=== PATIENT | male | born 1965 | race Caucasian/White ===

== ENCOUNTER 2020-01-03 01:04 | Inpatient (IN) | payer BC ==
[2020-01-03 01:57] LABS: Basophils # (A) 0.1 k/uL (0-0.2); Basophils % (A) 1 %; Eosinophils # (A) 0.5 k/uL (0-0.7); Eosinophils % (A) 3 %; HCT 42.2 % (39.0-53.0); HGB 14.2 gm/dL (13.0-17.5); Lymphocytes # (A) 1.1 k/uL (1.0-4.8); Lymphocytes % (A) 7 %; MCH 30.3 pg (25.0-35.0); MCHC 33.6 g/dL (31.0-37.0); Mean Platelet Volume 7.9; Monocytes # (A) 0.7 k/uL (0-1.0); Monocytes % (A) 5 %; Neutrophils % (A) 81 %; Platelet Count 213 k/uL (150-450); RBC 4.69 m/uL (4.30-5.90); RDW 11.9 % (11.5-15.5); WBC 14.8 k/uL (3.8-10.6)
[2020-01-03] MEDS ORDERED: RX INFO: IV CONTRAST WAS GIVEN 1 EACH MISC MISCELLANE PRN (01:58)
[2020-01-03] MEDS ORDERED: IBUPROFEN 600 MG TAB PO STA (01:59)
[2020-01-03] MEDS ORDERED: SODIUM CHLORIDE 0.9% 1,000 ML IV ONE ×2 (01:59→03:00)
[2020-01-03 02:07] LABS: ALT 32 U/L (4-49); AST 40 U/L (17-59); African American GFR (CKD) >90 (>60 ml/min/1.73 sqM); Albumin 3.6 g/dL (3.5-5.0); Alkaline Phosphatase 81 U/L (38-126); Anion Gap 12 mmol/L; Blood Urea Nitrogen 11 mg/dL (9-20); Calcium 8.6 mg/dL (8.4-10.2); Carbon Dioxide 26 mmol/L (22-30); Chloride 90 mmol/L (98-107); Glucose 133 mg/dL (74-99); LDH 466 U/L (313-618); Magnesium 2.1 mg/dL (1.6-2.3); Non-African American GFR(CKD) 87 (>60 ml/min/1.73 sqM); Potassium 4.1 mmol/L (3.5-5.1); Sodium 128 mmol/L (137-145); Total Bilirubin 0.7 mg/dL (0.2-1.3); Total Protein 6.8 g/dL (6.3-8.2)
[2020-01-03] MEDS ORDERED: DILTIAZEM DRIP BOLUS FROM BAG 1 MG SOLN IV ONE ×2 (02:12→03:21)
[2020-01-03] MEDS ORDERED: DILTIAZEM 125 MG in SODIUM CHLORIDE 0.9% 100 ML IV SCH (02:15)
--- NOTE | 2020-01-03 02:18 | XR ---
EXAMINATION TYPE: XR chest 1V DATE OF EXAM: 01/03/2020 COMPARISON: NONE HISTORY: Left lung pain TECHNIQUE: Single view FINDINGS: There is 11 cm area of consolidation over the left midlung field. This is probably mostly i n the left lower lobe.. The right lung is clear. There is no heart failure. There is no pleural effus ion. There are chest leads. IMPRESSION: Left side pulmonary consolidation. No heart failure seen.
[2020-01-03 02:21] LABS: Partial Thromboplastin Time 30.5 sec (22.0-30.0); Prothrombin Time 10.7 sec (9.0-12.0)
[2020-01-03] MEDS ORDERED: cefTRIAXone IN SWFI 1,000 MG/10 ML SYRINGE IVP STA (03:02)
[2020-01-03] MEDS ORDERED: AZITHROMYCIN 500 MG in SODIUM CHLORIDE 0.9% 250 ML IVPB STA (03:02)
[2020-01-03] MEDS: SODIUM CHLORIDE 0.9% 1,000 ML IV SCH ×3 (03:14→12:29)
--- NOTE | 2020-01-03 03:46 | CT ---
EXAMINATION TYPE: CT chest angio for PE DATE OF EXAM: 01/03/2020 COMPARISON: None HISTORY: mass vs abscess left lung CT DLP: 376.3 mGycm Automated exposure control for dose reduction was used. CONTRAST: Performed with IV Contrast, patient injected with 100 mL of Isovue 370. There are 3-D post processed images. Heart and mediastinum appear normal. There is no mediastinal adenopathy. Thoracic aorta is intact. Th ere is no aneurysm or dissection. The ascending aorta measures 3.6 cm. There is normal contrast opacification of the pulmonary arteries. There are no filling defects. There is extensive patchy airspace consolidation in the lingula left upper lobe and the superior segm ent left lower lobe. There are multiple air bronchograms. This is consistent with airspace pneumonia. There is 8mm nodule adjacent to the right major fissure without calcification. There is some interst itial infiltrate and atelectasis at the posterior lung bases. There is small left pleural effusion. T he bony thorax is intact. IMPRESSION: No evidence of pulmonary embolism. Extensive airspace infiltrate in the left lung in the lingula left upper lobe and left lower lobe more likely related to bronchopneumonia. No evidence of lung abscess. Small right lower lobe pulmonary nodule adjacent to the major fissure.
--- NOTE | 2020-01-03 04:26 | ED ---
General Adult HPI - General Chief complaint: Chest Pain Stated complaint: Chest Pain, Covid Symptoms Time Seen by Provider: 01/03/20 01:18 Source: patient Mode of arrival: ambulatory Limitations: no limitations - History of Present Illness Initial comments: Hunter is a previously healthy 54-year-old male who doesn't follow with a physician. Patient presents the ER today for fever cough and left-sided chest pain. Patient reports that beginning on Friday he's had fevers and cough, he thought he may have COVID 19 and was trying to treat himself symptomatically however tonight upon laying down he had a sharp pain in his left chest. This prompted him to come to ER for further evaluation. Patient denies any nausea, vomiting, shortness of breath, diarrhea. He's had no anosmia or dysgeusia. No known contacts with anybody who does have COVID 19. - Related Data Allergies Allergy/AdvReac Type Severity Reaction Status Date / Time No Known Allergies Allergy Verified 01/03/20 02:17 Review of Systems ROS Statement: Those systems with pertinent positive or pertinent negative responses have been documented in the HPI. ROS Other: All systems not noted in ROS Statement are negative. Past Medical History Past Medical History: No Reported History History of Any Multi-Drug Resistant Organisms: None Reported Past Surgical History: No Surgical Hx Reported Smoking Status: Smoker, current status unknown Past Alcohol Use History: Daily Past Drug Use History: None Reported General Exam - General Exam Comments Initial Comments: Physical Exam GENERAL: Patient is well-developed and well-nourished. Patient is hot to the touch diaphoretic and if he appears toxic HENT: Normocephalic, Atraumatic. EYES: PERRL, EOMI PULMONARY: Decreased breath sounds on the left CARDIOVASCULAR: Tachycardic Warm and well perfused extremities ABDOMEN: Soft and nontender with normal bowel sounds. SKIN: Skin is hot to the touch and diaphoretic Skin is clear with no lesions or rashes and otherwise unremarkable. : Deferred NEUROLOGIC: Patient is alert and oriented x3. Moving all extremities spontaneously MUSCULOSKELETAL: Normal extremities with adequate strength and full range of motion. No lower extremity swelling or edema. No calf tenderness. PSYCHIATRIC: Normal psychiatric evaluation. Limitations: no limitations Course Vital Signs 01/03/20 01/03/20 01/03/20 01:27 02:10 02:47 Temperature 103.1 F H Pulse Rate 74 156 H 149 H Respiratory 17 18 Rate Blood Pressure 116/72 122/89 O2 Sat by Pulse 97 96 Oximetry 01/03/20 02:54 Temperature 102 F H Pulse Rate Respiratory Rate Blood Pressure O2 Sat by Pulse Oximetry EKG Findings - EKG Comments: EKG Findings:: EKG was obtained as part of the chest pain workup, EKG was obtained at 1:15 AM, rate is 86 rhythm is sinus with frequent PACs, leftward axis, OK 132, QRS 92, QTc is [address] elevations or depressions no evidence of acute ischemia or infarction. PE EKG was obtained due to change in patient's rhythm, repeat EKG obtained at 2:09 AM, rate is 158 rhythm is a narrow complex irregularly irregular tachycardia consistent with an atrial fibrillation with RVR. There is ST depressions laterally likely demand ischemia. No evidence of acute infarction. Procedures - Sepsis Sepsis Focused Exam #1 Time Sepsis Criteria Met: 03:00 Sepsis Focused Exam Date: 01/03/20 Sepsis Focused Exam Time: 04:00 Sepsis Focused Exam Complete: Yes Vital Signs & RN Notes Reviewed: Yes Capillary Refill: < 2 Seconds: Fingers, Toes Peripheral Pulses: Normal: Radial (R), Radial (L) Skin Color: Normal for Patient Respiratory Exam: decreased breath sounds (Left secondary to pneumonia) Cardiovascular Exam: tachycardia, irregular rhythm Medical Decision Making - Medical Decision Making The patient was seen and evaluated, chest pain workup was initiated however it was then noted that the patient is in fact febrile though he is not tachycardic or tachypneic, blood cultures and lactic were added on Patient was treated with antipyretics Initial chest x-ray with a very large left sided consolidation which is concerning for pneumonia versus mass versus abscess Computed tomography scan was ordered pending labs however in the interim patient developed A. fib with RVR, Cardizem was ordered As results of leukocytosis no lactic acidosis 3 AM sepsis identified based on fever, tachycardia, leukocytosis, pneumonia on chest x-ray CT scan resulted with significant pneumonia no obvious pulmonary embolism or mass or abscess Patient's heart rate improving with Cardizem and IV fluids Patient is to be admitted for treatment of sepsis with a consult to cardiology for new onset A. fib RVR - Lab Data Result diagrams: 01/03/20 01:50 01/03/20 01:50 Lab Results 01/03/20 01/03/20 01/03/20 Range/Units 01:50 01:50 01:50 WBC 14.8 H (3.8-10.6) k/uL RBC 4.69 (4.30-5.90) m/uL Hgb 14.2 (13.0-17.5) gm/dL Hct 42.2 (39.0-53.0) % MCV 90.0 (80.0-100.0) fL MCH 30.3 (25.0-35.0) pg MCHC 33.6 (31.0-37.0) g/dL RDW 11.9 (11.5-15.5) % Plt Count 213 (150-450) k/uL Neutrophils % 81 % Lymphocytes % 7 % Monocytes % 5 % Eosinophils % 3 % Basophils % 1 % Neutrophils # 12.0 H (1.3-7.7) k/uL Lymphocytes # 1.1 (1.0-4.8) k/uL Monocytes # 0.7 (0-1.0) k/uL Eosinophils # 0.5 (0-0.7) k/uL Basophils # 0.1 (0-0.2) k/uL PT 10.7 (9.0-12.0) sec INR 1.0 (<1.2) APTT 30.5 H (22.0-30.0) sec Sodium 128 L (137-145) mmol/L Potassium 4.1 (3.5-5.1) mmol/L Chloride 90 L (98-107) mmol/L Carbon Dioxide 26 (22-30) mmol/L Anion Gap 12 mmol/L BUN 11 (9-20) mg/dL Creatinine 0.98 (0.66-1.25) mg/dL Est GFR (CKD-EPI)AfAm >90 (>60 ml/min/1.73 sqM) Est GFR (CKD-EPI)NonAf 87 (>60 ml/min/1.73 sqM) Glucose 133 H (74-99) mg/dL Plasma Lactic Acid Jay (0.7-2.0) mmol/L Calcium 8.6 (8.4-10.2) mg/dL Magnesium 2.1 (1.6-2.3) mg/dL Total Bilirubin 0.7 (0.2-1.3) mg/dL AST 40 (17-59) U/L ALT 32 (4-49) U/L Alkaline Phosphatase 81 (38-126) U/L Lactate Dehydrogenase 466 (313-618) U/L Troponin I (0.000-0.034) ng/mL NT-Pro-B Natriuret Pep pg/mL Total Protein 6.8 (6.3-8.2) g/dL Albumin 3.6 (3.5-5.0) g/dL 01/03/20 01/03/20 01/03/20 Range/Units 01:50 01:50 01:51 WBC (3.8-10.6) k/uL RBC (4.30-5.90) m/uL Hgb (13.0-17.5) gm/dL Hct (39.0-53.0) % MCV (80.0-100.0) fL MCH (25.0-35.0) pg MCHC (31.0-37.0) g/dL RDW (11.5-15.5) % Plt Count (150-450) k/uL Neutrophils % % Lymphocytes % % Monocytes % % Eosinophils % % Basophils % % Neutrophils # (1.3-7.7) k/uL Lymphocytes # (1.0-4.8) k/uL Monocytes # (0-1.0) k/uL Eosinophils # (0-0.7) k/uL Basophils # (0-0.2) k/uL PT (9.0-12.0) sec INR (<1.2) APTT (22.0-30.0) sec Sodium (137-145) mmol/L Potassium (3.5-5.1) mmol/L Chloride (98-107) mmol/L Carbon Dioxide (22-30) mmol/L Anion Gap mmol/L BUN (9-20) mg/dL Creatinine (0.66-1.25) mg/dL Est GFR (CKD-EPI)AfAm (>60 ml/min/1.73 sqM) Est GFR (CKD-EPI)NonAf (>60 ml/min/1.73 sqM) Glucose (74-99) mg/dL Plasma Lactic Acid Jay 1.5 (0.7-2.0) mmol/L Calcium (8.4-10.2) mg/dL Magnesium (1.6-2.3) mg/dL Total Bilirubin (0.2-1.3) mg/dL AST (17-59) U/L ALT (4-49) U/L Alkaline Phosphatase (38-126) U/L Lactate Dehydrogenase (313-618) U/L Troponin I <0.012 (0.000-0.034) ng/mL NT-Pro-B Natriuret Pep 368 pg/mL Total Protein (6.3-8.2) g/dL Albumin (3.5-5.0) g/dL Critical Care Time Critical Care Time: Yes Total Critical Care Time: 30 Critical Care Time: Critical Care Time 30 Critical care time was exclusive of separately billable procedures and treating other patients and teaching time. Critical care was necessary to treat or prevent imminent or life-threatening deterioration. Given the critical condition in which the patient arrived, the patient was immediately assessed by myself and the nurse, and cardiac monitoring initiated due to the potential for rapid decompensation of the patient's clinical condition. During the course of the patients stay, I spent a considerable amount of time at the bedside performing serial re-evaluations of the patient's hemo dynamic and clinical status because of the recognized potential threat to life or limb in this condition. I then had a chance to review not only all of the available current laboratory and radiographic studies obtained today, but I also reviewed old records available to me at the time. Additionally, any ancillary information available including two way radio technician records were reviewed. Sequential vital signs were obtained. Disposition Clinical Impression: Pneumonia Disposition: ADMITTED IP TO THIS HOSP Condition: Serious Is patient prescribed a controlled substance at d/c from ED?: No Referrals: None,Stated [Primary Care Provider] - 1-2 days
[2020-01-03] MEDS ORDERED: MORPHINE SULFATE 4 MG/ML SYRINGE IV PRN (04:27)
[2020-01-03] MEDS ORDERED: ACETAMINOPHEN TAB 325 MG TAB PO PRN (04:27)
[2020-01-03] MEDS ORDERED: IBUPROFEN 400 MG TAB PO PRN (04:27)
[2020-01-03] MEDS ORDERED: NALOXONE 0.4 MG/ML 1 ML VIAL IV PRN (04:27)
[2020-01-03] MEDS ORDERED: HEPARIN SODIUM,PORCINE 5,000 UNIT/ML 1 ML VIAL IV PRN (04:28)
[2020-01-03] MEDS ORDERED: HEPARIN SODIUM,PORCINE 5,000 UNIT/ML 1 ML VIAL IV ONE (04:28)
[2020-01-03] MEDS ORDERED: HEPARIN SOD,PORK IN 0.45% NACL 25,000 UNIT in 0.45% NACL 1 250ML.BAG IV SCH (04:30)
[2020-01-03] MEDS ORDERED: SODIUM CHLORIDE 0.9% 500 ML 250 ML IV ONE (08:23)
--- NOTE | 2020-01-03 09:44 | P.CRDCN ---
History of Present Illness Consult date: 01/03/20 Requesting physician: En Chicas Reason for Consult (text): new afib RVR Chief complaint: left sided chest pain History of present illness: This is a pleasant 54-year-old gentleman with no significant past medical history however he has not seen a physician regularly and about 30 years. He h as a family history CAD in his father who had bypass surgery around the age of 60 and an uncle on his father's side who following an MT in his mid 50s. He uses smokeless tobacco daily. He drinks regularly about 3-4 beers every day. 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 He had been feeling well up until about 5 days ago when he began to feel ill. Developing fever, chills, shortness of breath, cough and PND. He's been off work and was treating himself at home with fluids and Tylenol. His prompted to come to the emergency department due to some left-sided chest discomfort that he experienced while lying in bed. It mostly hurt with deep breathing and when lying on his left side. Because of his family history he decided to come to the emergency department for further evaluation. Initial EKG on presentation showed sinus rhythm with PACs and ST-T wave abnormalities most prominent in the inferior leads. Subsequent EKG showed atrial fibrillation with rapid ventricular response with more diffuse ST-T wave abnormalities. He was febrile with a temp of 103.1F. He was given Tylenol and Motrin and initiated on Cardizem drip. That's on admission showed a white blood cell count of 14,800, sodium 128, potassium 4.1, BUN 11, creatinine 0.98, magnesium 2.1, troponin less than 0.012 and NT proBNP of 368. Chest x-ray showed left sided pulmonary consolidation, no heart failure seen. CT of the chest showed no evidence of pulmonary embolism, extensive airspace infiltrate left lung and the lingual left upper lobe and left lower lobe more likely related to bronchopneumonia, no evidence of lung abscess, small right lower lobe pulmonary nodule adjacent to the major fissure. Patient is currently maintaining sinus rhythm. Continues to complain of shortness of breath, cough and left-sided chest discomfort. He is currently afebrile. Past Medical History Past Medical History: No Reported History History of Any Multi-Drug Resistant Organisms: None Reported Past Surgical History: No Surgical Hx Reported Additional Past Surgical History / Comment(s): PT states he had a bone spur taken off his elbow, years ago. Past Anesthesia/Blood Transfusion Reactions: No Reported Reaction Past Psychological History: No Psychological Hx Reported Smoking Status: Smoker, current status unknown Past Alcohol Use History: Daily Past Drug Use History: None Reported - Past Family History Father Family Medical History: Chest Pain / Angina, Coronary Artery Disease (CAD), Myocardial Infarction (MT) Medications and Allergies Home Medications Medication Instructions Recorded Confirmed Type Acetaminophen Tab [Tylenol] 650 mg PO Q6H PRN 01/03/20 01/03/20 History Grapeseed Extract 1 tab PO DAILY 01/03/20 01/03/20 History L.acidoph,Paracasei, B.lactis 1 cap PO DAILY 01/03/20 01/03/20 History [Probiotic] Magnesium 200 mg PO DAILY 01/03/20 01/03/20 History Multivitamins, Thera [Multivitamin 1 tab PO DAILY 01/03/20 01/03/20 History (formulary)] Vitamin B Complex 1 cap PO DAILY 01/03/20 01/03/20 History Allergies Allergy/AdvReac Type Severity Reaction Status Date / Time No Known Allergies Allergy Verified 01/03/20 07:14 Physical Exam Vitals: Vital Signs Temp Pulse Pulse Resp BP BP BP 01/03/20 08:18 98.0 F 52 L 20 79/51 01/03/20 05:49 98.0 F 58 L 18 93/62 88/52 01/03/20 05:30 54 L 01/03/20 05:26 98.3 F 01/03/20 05:15 96 96/59 01/03/20 05:00 104 H 96/65 01/03/20 04:45 100 92/65 01/03/20 04:35 97.3 F L 01/03/20 04:30 99 100/78 01/03/20 04:15 121 H 90/65 01/03/20 04:00 125 H 123/102 01/03/20 03:45 115 H 01/03/20 03:30 111/82 01/03/20 03:15 121 H 117/72 01/03/20 03:00 149 H 125/89 01/03/20 02:54 102 F H 01/03/20 02:47 149 H 01/03/20 02:46 140 H 125/89 01/03/20 02:10 156 H 18 122/89 01/03/20 01:27 103.1 F H 74 17 116/72 Pulse Ox 01/03/20 08:18 98 01/03/20 05:49 96 01/03/20 05:30 01/03/20 05:26 01/03/20 05:15 96 01/03/20 05:00 96 01/03/20 04:45 95 01/03/20 04:35 01/03/20 04:30 96 01/03/20 04:15 95 01/03/20 04:00 96 01/03/20 03:45 96 01/03/20 03:30 01/03/20 03:15 95 01/03/20 03:00 95 01/03/20 02:54 01/03/20 02:47 01/03/20 02:46 93 L 01/03/20 02:10 96 01/03/20 01:27 97 Intake and Output 01/02/20 01/03/20 01/03/20 22:59 06:59 14:59 Intake Total 43.584 Balance 43.584 Intake: Intake, IV Titration 43.584 Amount Diltiazem 125 mg In 43.584 Sodium Chloride 0.9% 100 ml @ 5 MG/HR 5 mls/hr IV .Q24H [facility] Rx#:[id number] Other: # Voids 0 Weight 77.111 kg PHYSICAL EXAMINATION: This is a 54-year-old male in no apparent distress at the time of my examination. VITAL SIGNS: Blood pressure 79/51, heart rate 52, respirations 20, temp 98.0F. Patient is 98 % on room air. HEENT: Head is atraumatic, normocephalic. Pupils are equal, round. Sclerae anicteric. Conjunctivae are clear. Mucous membranes of the mouth are moist. Neck is supple. There is no elevated jugular venous pressure. No carotid bruit is heard. CHEST EXAMINATION: Clear reveal left lower lobe crackles and diminished air entr y left base. Respirations even and nonlabored. Complaints of left-sided chest discomfort with deep inspiration. HEART EXAMINATION: Heart regular, positive S1 and S2. No S3. No S4. No clicks, rubs or murmurs. ABDOMEN: Soft, nontender. Bowel sounds are heard. No organomegaly noted. EXTREMITIES: 2+ peripheral pulses with no evidence of peripheral edema and no calf tenderness noted. NEUROLOGIC EXAMINATION: Patient is awake, alert and oriented x3. Results 01/03/20 01:50 01/03/20 01:50 Cardiac Enzymes 01/03/20 01/03/20 Range/Units 01:50 01:50 AST 40 (17-59) U/L Lactate Dehydrogenase 466 (313-618) U/L Troponin I <0.012 (0.000-0.034) ng/mL Coagulation 01/03/20 Range/Units 01:50 PT 10.7 (9.0-12.0) sec APTT 30.5 H (22.0-30.0) sec CBC 01/03/20 Range/Units 01:50 WBC 14.8 H (3.8-10.6) k/uL RBC 4.69 (4.30-5.90) m/uL Hgb 14.2 (13.0-17.5) gm/dL Hct 42.2 (39.0-53.0) % Plt Count 213 (150-450) k/uL Comprehensive Metabolic Panel 01/03/20 Range/Units 01:50 Sodium 128 L (137-145) mmol/L Potassium 4.1 (3.5-5.1) mmol/L Chloride 90 L (98-107) mmol/L Carbon Dioxide 26 (22-30) mmol/L BUN 11 (9-20) mg/dL Creatinine 0.98 (0.66-1.25) mg/dL Glucose 133 H (74-99) mg/dL Calcium 8.6 (8.4-10.2) mg/dL AST 40 (17-59) U/L ALT 32 (4-49) U/L Alkaline Phosphatase 81 (38-126) U/L Total Protein 6.8 (6.3-8.2) g/dL Albumin 3.6 (3.5-5.0) g/dL Current Medications Generic Name Dose Route Start Last Admin Trade Name Freq PRN Reason Stop Dose Admin Acetaminophen 650 mg 01/03/20 04:27 Tylenol Tab PO Q6HR PRN Mild Pain or Fever > 100.5 Heparin Sodium (Porcine) 0 unit 01/03/20 04:28 Heparin IV PER PROTOCOL PRN Low PTT Protocol Sodium Chloride 1,000 mls @ 130 mls/hr 01/03/20 02:00 01/03/20 03:14 Saline 0.9% IV 130 mls/hr .[id number] NATHALIE Administration Diltiazem HCl 125 mg/ Sodium 125 mls @ 5 mls/hr 01/03/20 02:15 01/03/20 05:55 Chloride IV 5 mg/hr .Q24H NATHALIE 5 mls/hr Infusion 5 MG/HR Heparin Sodium/Sodium Chloride 250 mls @ 9.253 mls/hr 01/03/20 04:30 01/03/20 05:22 25,000 unit/ Sodium Chloride IV 12 units/kg/hr .Q24H NATHALIE 9.253 mls/hr Administration Protocol 12 UNITS/KG/HR Azithromycin 500 mg/ Sodium 250 mls @ 250 mls/hr 01/04/20 09:00 Chloride IVPB DAILY [facility] Ceftriaxone Sodium 1 gm/ 50 mls @ 100 mls/hr 01/03/20 12:00 Sodium Chloride IVPB Q12HR [facility] Ibuprofen 400 mg 01/03/20 04:27 Motrin PO Q6HR PRN Mild Pain or Fever > 100.5 Miscellaneous Information 1 each 01/03/20 01:58 Rx Info: Iv Contrast Was Given MISCELLANE 01/05/20 01:58 DAILY PRN Per Protocol Morphine Sulfate 4 mg 01/03/20 04:27 Morphine Sulfate (Inj) IV Q4HR PRN Severe Pain Naloxone HCl 0.2 mg 01/03/20 04:27 Narcan IV Q2M PRN Opioid Reversal Intake and Output 01/02/20 01/03/20 01/03/20 22:59 06:59 14:59 Intake Total 43.584 Balance 43.584 Intake: Intake, IV Titration 43.584 Amount Diltiazem 125 mg In 43.584 Sodium Chloride 0.9% 100 ml @ 5 MG/HR 5 mls/hr IV .Q24H [facility] Rx#:[id number] Other: # Voids 0 Weight 77.111 kg 01/03/20 01:50 01/03/20 01:50 Assessment and Plan Assessment: #1 sepsis secondary to pneumonia, coronavirus PCR pending #2 new-onset atrial fibrillation with rapid ventricular response, paroxysmal, currently maintaining sinus rhythm #3 nicotine dependence #4 daily alcohol use #5 family history CAD Plan: From cardiology's perspective, patient has a chads vasc score of 0, we will discontinue IV heparin. We will check a TSH. Obtain a 2-D echo with Doppler. We will consult pulmonary. We'll continue to follow the patient provides further recommendations accordingly. SE[employer] note has been reviewed, I agree with a documented findings and plan of care. Patient was seen and examined.
[2020-01-03] MEDS ORDERED: methylPREDNISolone SOD SUCCI 125 MG/2 ML VIAL IV STA (10:59)
[2020-01-03 11:48] LABS: Ferritin 1944.1 ng/mL (22.0-322.0)
--- NOTE | 2020-01-03 15:09 | P.CNPUL ---
History of Present Illness Consult date: 01/03/20 Requesting physician: Ashley Calderon Reason for consult: dyspnea, chest pain, pneumonia, abnormal CXR/CT Chief complaint: chest pain fever History of present illness: This is a 54-year-old male patient, with no significant medical history, however patient has not seen a physician in over 30 years. 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 last week on on 12/30/2019, patient started experiencing fever, sweats, body aches, fatigue. He thought he was coming down with symptoms of coronary virus and went to the urgent care clinic to get tested for Covid, he went through the drive through, and was not seen by provider. On Friday he started experiencing cough, tightness in chest. his cough was dry, nonproductive. On 01/03/2020 he presented to the emergency department with complaints of left-sided chest pain, and fever. Denies any known contacts with COVID 19. his chest x-ray showed left side 11 cm area of consolidation over the left mid lung field. The right lung is clear, blood work showed leukocytosis with white blood cell count of 14.8, hemoglobin of 14.2, d- dimer was mildly elevated to 0.72, sodium is 128, troponin was negative, proBNP was within normal limits. Temperature was 103.1F on presentation, patient was started on azithromycin and Rocephin. Apparently patient went into atrial fibrillation with rapid ventricular response, cardiology evaluated the patient, patient was started on heparin drip, and Cardizem drip for rate control. currently patient is back in sinus mechanism, with a controlled rate, hemodynamically he is stable, afebrile, and continues is on empiric antibiotics. Review of Systems All systems: negative Constitutional: Reports weakness, Denies chills, Denies fever Eyes: denies blurred vision, denies pain Ears, nose, mouth and throat: Denies headache, Denies sore throat Cardiovascular: Reports chest pain, Denies shortness of breath Respiratory: Denies cough Gastrointestinal: Denies abdominal pain, Denies diarrhea, Denies nausea, Denies vomiting Musculoskeletal: Denies myalgias Integumentary: Denies pruritus, Denies rash Neurological: Denies numbness, Denies weakness Psychiatric: Denies anxiety, Denies depression Endocrine: Denies fatigue, Denies weight change Past Medical History Past Medical History: No Reported History History of Any Multi-Drug Resistant Organisms: None Reported Past Surgical History: No Surgical Hx Reported Additional Past Surgical History / Comment(s): PT states he had a bone spur taken off his elbow, years ago. Past Anesthesia/Blood Transfusion Reactions: No Reported Reaction Past Psychological History: No Psychological Hx Reported Smoking Status: Smoker, current status unknown Past Alcohol Use History: Daily Past Drug Use History: None Reported - Past Family History Father Family Medical History: Chest Pain / Angina, Coronary Artery Disease (CAD), Myocardial Infarction ([place]) Medications and Allergies Home Medications Medication Instructions Recorded Confirmed Type Acetaminophen Tab [Tylenol] 650 mg PO Q6H PRN 01/03/20 01/03/20 History Grapeseed Extract 1 tab PO DAILY 01/03/20 01/03/20 History L.acidoph,Paracasei, B.lactis 1 cap PO DAILY 01/03/20 01/03/20 History [Probiotic] Magnesium 200 mg PO DAILY 01/03/20 01/03/20 History Multivitamins, Thera [Multivitamin 1 tab PO DAILY 01/03/20 01/03/20 History (formulary)] Vitamin B Complex 1 cap PO DAILY 01/03/20 01/03/20 History Allergies Allergy/AdvReac Type Severity Reaction Status Date / Time No Known Allergies Allergy Verified 01/03/20 07:14 Physical Exam Vitals: Vital Signs Temp Pulse Pulse Resp BP BP BP 01/03/20 11:36 104/58 01/03/20 08:18 98.0 F 52 L 20 79/51 01/03/20 05:49 98.0 F 58 L 18 93/62 88/52 01/03/20 05:30 54 L 01/03/20 05:26 98.3 F 01/03/20 05:15 96 96/59 01/03/20 05:00 104 H 96/65 01/03/20 04:45 100 92/65 01/03/20 04:35 97.3 F L 01/03/20 04:30 99 100/78 01/03/20 04:15 121 H 90/65 01/03/20 04:00 125 H 123/102 01/03/20 03:45 115 H 01/03/20 03:30 111/82 08/10/20 03:15 121 H 117/72 01/03/20 03:00 149 H 125/89 01/03/20 02:54 102 F H 01/03/20 02:47 149 H 01/03/20 02:46 140 H 125/89 01/03/20 02:10 156 H 18 122/89 01/03/20 01:27 103.1 F H 74 17 116/72 Pulse Ox 01/03/20 11:36 01/03/20 08:18 98 01/03/20 05:49 96 01/03/20 05:30 01/03/20 05:26 01/03/20 05:15 96 01/03/20 05:00 96 01/03/20 04:45 95 01/03/20 04:35 01/03/20 04:30 96 01/03/20 04:15 95 01/03/20 04:00 96 01/03/20 03:45 96 01/03/20 03:30 01/03/20 03:15 95 01/03/20 03:00 95 01/03/20 02:54 01/03/20 02:47 01/03/20 02:46 93 L 01/03/20 02:10 96 01/03/20 01:27 97 Intake and Output 01/02/20 01/03/20 01/03/20 22:59 06:59 14:59 Intake Total 43.584 66.622 Balance 43.584 66.622 Intake: Intake, IV Titration 43.584 66.622 Amount Diltiazem 125 mg In 43.584 Sodium Chloride 0.9% 100 ml @ 5 MG/HR 5 mls/hr IV .Q24H [facility] Rx#:[id number] Heparin Sod,Pork in 0.45% 66.622 NaCl 25,000 unit In 0.45 % NaCl 1 250ml.bag @ 12 UNITS/KG/HR 9.253 mls/hr IV .Q24H [facility] Rx#: [id number] Other: # Voids 0 Weight 77.111 kg GENERAL EXAM: Alert, very pleasant, 54-year-old white male, resting comfortably in bed, on room air, comfortable in no apparent distress. HEAD: Normocephalic/atraumatic. EYES: Normal reaction of pupils, equal size. Conjunctiva pink, sclera white. NOSE: Clear with pink turbinates. THROAT: No erythema or exudates. NECK: No masses, no JVD, no thyroid enlargement, no adenopathy. CHEST: No chest wall deformity. Symmetrical expansion. LUNGS: Equal air entry with no crackles, wheeze, rhonchi or dullness. CVS: Regular rate and rhythm, normal S1 and S2, no gallops, no murmurs, no rubs ABDOMEN: Soft, nontender. No hepatosplenomegaly, normal bowel sounds, no guarding or rigidity. EXTREMITIES: No clubbing, no edema, no cyanosis, 2+ pulses and upper and lower extremities. MUSCULOSKELETAL: Muscle strength and tone normal. SPINE: No scoliosis or deformity SKIN: No rashes CENTRAL NERVOUS SYSTEM: Alert and oriented -3. No focal deficits, tone is no rmal in all 4 extremities. PSYCHIATRIC: Alert and oriented -3. Appropriate affect. Intact judgment and insight. Results - Laboratory Findings CBC and BMP: 01/03/20 01:50 01/03/20 01:50 PT/INR, D-dimer PT 10.7 sec (9.0-12.0) 01/03/20 01:50 INR 1.0 (<1.2) 01/03/20 01:50 D-Dimer 0.72 mg/L FEU (<0.60) H 01/03/20 10:20 Abnormal lab findings: Abnormal Labs 01/03/20 01/03/20 01/03/20 01:50 01:50 01:50 WBC 14.8 H Neutrophils # 12.0 H APTT 30.5 H D-Dimer Sodium 128 L Chloride 90 L Glucose 133 H Ferritin 1944.1 H 01/03/20 01/03/20 10:20 10:20 WBC Neutrophils # APTT 34.6 H D-Dimer 0.72 H Sodium Chloride Glucose Ferritin - Diagnostic Findings Chest x-ray: report reviewed, image reviewed CT scan - chest: report reviewed, image reviewed Assessment and Plan Plan: Assessment: #1. Chest pain, likely pleuritic in nature, related to acute left lung pneumonia, likely community acquired, suspect streptococcal pneumonia #2. New onset atrial fibrillation with RVR, currently back in sinus rhythm #3. Fever, cough, body aches and fatigue, patient had outpatient testing for COVID 19, on 12/30/2019, with unknown results, repeat inpatient COVID 19 testing results are pending. suspicion for COVID 19 is low, although still needs to be ruled out #4. Mild elevation of the d-dimer, nonspecific, CTA chest negative for PE #5. Hyponatremia, possibly hypovolemic, admission sodium is 128, could have a chronic component related to regular consumption of alcohol. Neurologically intact #6. Nicotine dependence, patient uses smokeless tobacco #7.Family history of CAD Plan: We'll give the patient 1 dose of IV Solu-Medrol, continue with anti-inflammatory medications for pleuritic chest discomfort related to left lung pneumonia, which is likely streptococcal, continue with azithromycin and Rocephin. Send a sputum culture, fever pattern is improved, COVID 19 results are pending, we will try to obtain records from the outpatient COVID 19 testing drive-through at the urgent care clinic in [place]. continue gentle IV hydration, follow-up chest x-ray in the morning, repeat blood work in the morning, we'll continue to closely follow I performed a history & physical examination of the patient and discussed their management with my nurse practitioner, Jessica Wooten. I reviewed the nurse practitioner's note and agree with the documented findings and plan of care. Lung sounds are positive for diminished breath sounds. The findings and the impression was discussed with the patient. I attest to the documentation by the nurse practitioner. Time with Patient: Greater than 30
[2020-01-03 17:07] LABS: Glucose,Whole Blood 163 mg/dL (75-99)
--- NOTE | 2020-01-03 18:00 | ECHOF ---
Referral Reason:new afib, chest pain MEASUREMENTS -------- HEIGHT: 182.9 cm WEIGHT: 77.1 kg BP: RVIDd: 3.4 cm (< 3.3) IVSd: 1.0 cm (0.6 - 1.1) LVIDd: 4.3 cm (3.9 - 5.3) LVPWd: 1.4 cm (0.6 - 1.1) EDV(Teich): 82 ml IVSs: 1.4 cm LVIDs: 3.3 cm LVPWs: 1.2 cm %IVS Thck: 35 % ESV(Teich): 44 ml EF(Teich): 46 % %FS: 23 % SV(Teich): 38 ml Ao Diam: 3.4 cm (2.0 - 3.7) AV Cusp: 2.0 cm (1.5 - 2.6) MV EXCURSION: 22.907 mm (> 18.000) MV EF SLOPE: 167 mm/s (70 - 150) EPSS: 0.2 cm MV E Gianfranco: 0.72 m/s MV DecT: 144 ms MV Dec Ballard: 5.0 m/s MV A Gianfranco: 0.61 m/s MV E/A Ratio: 1.19 MV PHT: 42 ms FINDINGS -------- Sinus rhythm. This was a technically good study. LV size, wall thickness and systolic function are normal, with an EF greater than 55%. The left sharmila tricular size is normal. The right ventricle is normal in size. The left atrial size is normal. The right atrial size is normal. The aortic valve is trileaflet, and appears structurally normal. No aortic stenosis or regurgitation. Mild mitral regurgitation is present. Mild tricuspid regurgitation present. Right ventricular systolic pressure is normal at < 35 mmHg. There is no pulmonic regurgitation present. The aortic root size is normal. There is no pericardial effusion. CONCLUSIONS -------- 1. LV size, wall thickness and systolic function are normal, with an EF greater than 55%. 2. The left ventricular size is normal. 3. Mild mitral regurgitation is present. 4. Mild tricuspid regurgitation present. STUCCO APPLICATOR: Beth Holm RDCS
--- NOTE | 2020-01-03 22:58 | P.HPIM ---
History of Present Illness H&P Date: 01/03/20 Patient is a 54-year-old male without significant past medical history except smoking and daily alcohol use about 2-3 beers after work presents to ER with complaints of fever and generalized weakness since last Friday. Patient has been having body soreness and cough without sputum production. Patient's heart he was having symptoms of COVID virus and went to urgent care facility and get tested for COVID-19. On patient continued to be weak and started having worsening shortness of breath. Yesterday patient went to lie down and felt chest tightness less mainly on the left side. Chest pain gets worse with deep breathing and catching up. Denied any associated nausea vomiting or worsening shortness of breath. Patient was febrile on admission. Denied any leg swelling. No headache or dizziness or lightheadedness. T-max was 103.1 on admission Chest x-ray showed left-sided pulmonary consolidation. No heart failure is seen. CT angiogram of the chest was done showed no evidence of pulmonary embolism. Extensive airspace infiltrate in the left lung in the lingula and left upper lobe and left lower lobe more likely related to bronchopneumonia. No evidence of lung abscess. Small right lower lobe pulmonary nodule adjacent to the major fissure. EKG showed atrial fibrillation with rapid ventricular rate Laboratory data WBC 14.8, hemoglobin 14.1 platelets 213 D-dimer is slightly elevated at 0.72 Sodium 128, potassium 4.1 and chloride 90 Ferritin level is 1944 LDH 466 Troponin x1- proBNP 368 TSH 1.24 Review of Systems Constitutional: Patient does have fever and chills and generalized weakness.. Abdomen: Patient denied nausea vomiting and diarrhea and abdominal pain. Cardiovascular: Patient does have chest tightness and shortness of breath. Respiratory: Patient does have cough without sputum production. shortness of breath Neurologic: Patient denied any numbness or tingling headache. Musculoskeletal: Patient denies any complaints of joint swelling or deformity. Skin: Negative Psychiatric: Negative Endocrine: No heat or cold intolerance. No recent weight gain. Genitourinary: No dysuria or hematuria. All other 14 point ROS negative except the above Past Medical History Past Medical History: No Reported History History of Any Multi-Drug Resistant Organisms: None Reported Past Surgical History: No Surgical Hx Reported Additional Past Surgical History / Comment(s): PT states he had a bone spur taken off his elbow, years ago. Past Anesthesia/Blood Transfusion Reactions: No Reported Reaction Past Psychological History: No Psychological Hx Reported Smoking Status: Smoker, current status unknown Past Alcohol Use History: Daily Past Drug Use History: None Reported - Past Family History Father Family Medical History: Chest Pain / Angina, Coronary Artery Disease (CAD), Myocardial Infarction ([place]) Medications and Allergies Home Medications Medication Instructions Recorded Confirmed Type Acetaminophen Tab [Tylenol] 650 mg PO Q6H PRN 01/03/20 01/03/20 History Grapeseed Extract 1 tab PO DAILY 01/03/20 01/03/20 History L.acidoph,Paracasei, B.lactis 1 cap PO DAILY 01/03/20 01/03/20 History [Probiotic] Magnesium 200 mg PO DAILY 01/03/20 01/03/20 History Multivitamins, Thera [Multivitamin 1 tab PO DAILY 01/03/20 01/03/20 History (formulary)] Vitamin B Complex 1 cap PO DAILY 01/03/20 01/03/20 History Allergies Allergy/AdvReac Type Severity Reaction Status Date / Time No Known Allergies Allergy Verified 01/03/20 07:14 Physical Exam Vitals: Vital Signs Temp Pulse Pulse Resp BP BP BP 01/03/20 08:18 98.0 F 52 L 20 79/51 01/03/20 05:49 98.0 F 58 L 18 93/62 88/52 01/03/20 05:30 54 L 01/03/20 05:26 98.3 F 01/03/20 05:15 96 96/59 01/03/20 05:00 104 H 96/65 01/03/20 04:45 100 92/65 01/03/20 04:35 97.3 F L 01/03/20 04:30 99 100/78 01/03/20 04:15 121 H 90/65 01/03/20 04:00 125 H 123/102 01/03/20 03:45 115 H 01/03/20 03:30 111/82 01/03/20 03:15 121 H 117/72 01/03/20 03:00 149 H 125/89 01/03/20 02:54 102 F H 01/03/20 02:47 149 H 01/03/20 02:46 140 H 125/89 01/03/20 02:10 156 H 18 122/89 01/03/20 01:27 103.1 F H 74 17 116/72 Pulse Ox 01/03/20 08:18 98 01/03/20 05:49 96 01/03/20 05:30 01/03/20 05:26 01/03/20 05:15 96 01/03/20 05:00 96 01/03/20 04:45 95 01/03/20 04:35 01/03/20 04:30 96 01/03/20 04:15 95 01/03/20 04:00 96 01/03/20 03:45 96 01/03/20 03:30 01/03/20 03:15 95 01/03/20 03:00 95 01/03/20 02:54 01/03/20 02:47 01/03/20 02:46 93 L 01/03/20 02:10 96 01/03/20 01:27 97 Intake and Output 01/02/20 01/03/20 01/03/20 22:59 06:59 14:59 Intake Total 43.584 Balance 43.584 Intake: Intake, IV Titration 43.584 Amount Diltiazem 125 mg In 43.584 Sodium Chloride 0.9% 100 ml @ 5 MG/HR 5 mls/hr IV .Q24H [facility] Rx#:[id number] Other: # Voids 0 Weight 77.111 kg PHYSICAL EXAMINATION: Patient is lying in the bed comfortably, no acute distress, awake alert and oriented.. HEENT: Normocephalic. Neck is supple. Pupils reactive. Nostrils clear. Oral ca vity is moist. Ears reveal no drainage. Neck reveals no JVD, carotid bruits, or thyromegaly. CHEST EXAMINATION: Trachea is central. Symmetrical expansion. Bibasilar diminished air entry and left-sided coarse breath sounds. Minimal expiratory wheeze.. CARDIAC: Normal S1, S2 with no gallops. No murmurs ABDOMEN: Soft. Bowel sounds normal. No organomegaly. No abdominal bruits. Extremities: reveal no edema. No clubbing or cyanosis Neurologically awake, alert, oriented x3 with well-coordinated movements. No focal deficits noted Skin: No rash or skin lesions. Psychiatric: Coperative. Nonsuicidal Musculoskeletal: No joint swelling or deformity. Normal range of motion. Results CBC & Chem 7: 01/03/20 01:50 01/03/20 01:50 Labs: Abnormal Lab Results - Last 24 Hours (Table) 01/03/20 01/03/20 01/03/20 Range/Units 01:50 01:50 01:50 WBC 14.8 H (3.8-10.6) k/uL Neutrophils # 12.0 H (1.3-7.7) k/uL APTT 30.5 H (22.0-30.0) sec Sodium 128 L (137-145) mmol/L Chloride 90 L (98-107) mmol/L Glucose 133 H (74-99) mg/dL Thrombosis Risk Factor Assmnt - DVT/VTE Prophylaxis DVT/VTE Prophylaxis: Pharmacologic Prophylaxis ordered - Choose All That Apply Each Factor Represents 1 point: Age 41-60 years Thrombosis Risk Factor Assessment Total Risk Factor Score: 1 Thrombosis Risk Factor Assessment Level: Low Risk Assessment and Plan Assessment: Acute left lung pneumonia possible community-acquired Chest pain mainly pleuritic due to infection. New onset atrial fibrillation with aberrant left rate. Sepsis secondary to pneumonia Suspected COVID-19 infection due to fever cough and body aches and generalized weakness. Elevated d-dimer with no evidence of pulmonary embolism on CTA chest. Hypovolemic hyponatremia Daily alcohol use Ongoing nicotine addiction DVT prophylaxis Heparin subcu Plan: Patient will be continued on antibiotics in the form of ceftriaxone and azithromycin. Continue with gentle IV hydration. Patient was started heparin drip and currently patient is converted to normal sinus rhythm. Awaiting COVID- 19 test results. Follow-up blood cultures and continue with pain management as well. Pulmonary and cardiology is on board. Prognosis guarded at this time. Time with Patient: Greater than 30
--- NOTE | 2020-01-04 07:26 | XR ---
EXAMINATION TYPE: XR chest 2V DATE OF EXAM: 01/04/2020 COMPARISON: 01/03/2020 TECHNIQUE: PA and lateral views submitted. HISTORY: Cough FINDINGS: There is 11 cm area of consolidation over the left midlung field. This is probably mostly in the left lower lobe.. The right lung is clear. There is no heart failure. There is no pleural effusion. There are chest leads. Mild hyperinflation could be associated with COPD. IMPRESSION: 1. Large area of left-sided consolidation correlate for pneumonia. Follow resolution to exclude under lying neoplasm..
[2020-01-04 07:48] LABS: Basophils % (A) 0 %; Eosinophils # (A) 0.1 k/uL (0-0.7); Eosinophils % (A) 1 %; HGB 13.3 gm/dL (13.0-17.5); Lymphocytes # (A) 0.8 k/uL (1.0-4.8); Lymphocytes % (A) 7 %; MCH 29.6 pg (25.0-35.0); MCHC 31.7 g/dL (31.0-37.0); MCV 93.5 fL (80.0-100.0); Mean Platelet Volume 7.7; Monocytes # (A) 0.5 k/uL (0-1.0); Monocytes % (A) 4 %; Neutrophils # (A) 9.9 k/uL (1.3-7.7); Neutrophils % (A) 87 %; Platelet Count 247 k/uL (150-450); RBC 4.49 m/uL (4.30-5.90); WBC 11.4 k/uL (3.8-10.6)
[2020-01-04 08:00] LABS: African American GFR (CKD) >90 (>60 ml/min/1.73 sqM); Anion Gap 9 mmol/L; Blood Urea Nitrogen 12 mg/dL (9-20); Calcium 8.8 mg/dL (8.4-10.2); Carbon Dioxide 26 mmol/L (22-30); Chloride 102 mmol/L (98-107); Glucose 153 mg/dL (74-99); Non-African American GFR(CKD) >90 (>60 ml/min/1.73 sqM); Sodium 137 mmol/L (137-145)
[2020-01-04] MEDS: AZITHROMYCIN 500 MG in SODIUM CHLORIDE 0.9% 250 ML IVPB SCH (09:56)
[2020-01-04] MEDS: ENOXAPARIN 40 MG/0.4 ML SYRINGE SQ SCH (09:57)
[2020-01-04] MEDS: SODIUM CHLORIDE 0.9% 1,000 ML IV SCH (09:57)
[2020-01-04] MEDS ORDERED: methylPREDNISolone SOD SUCCI 125 MG/2 ML VIAL IV STA (11:09)
--- NOTE | 2020-01-04 11:27 | PN ---
PROGRESS NOTE Mr. Cardenas is a 54-year-old male who presented with symptoms of progressive dyspnea, cough and fever and had an episode of atrial fibrillation subsequently converted back to sinus mechanism. He had an echocardiogram revealed preserved ventricular size and systolic function. Chest x-ray showed the left lower lobe consolidation consistent with pneumonia. He was seen by Dr. Burr. His alvarado virus PCR was negative. He is feeling well this morning. He continued to be in sinus mechanism. He is ambulating without difficulty. He denies any dizziness, palpitation. he denies any nausea. He continues to be at this time on ceftriaxone. PHYSICAL EXAMINATION: Blood pressure 148/70 with a heart rate in the 60s, lungs with a few crackles at the left base. HEART: Regular rate and rhythm, S1, S2. No S3. No rub. ABDOMEN: Soft, nontender. EXTREMITIES: No edema. LAB DATA: Revealed a white blood cell of 11.4, hemoglobin of 13.3, BUN and creatinine 12 and 0.7. His TSH is 1.24. IMPRESSION: 1. Left lower lobe pneumonia, most likely Streptococcus pneumonia. 2. Paroxysmal atrial fibrillation, back in sinus mechanism. Patient Chads Vasc 2 score is 0. 3. History of smokeless tobacco. 4. History of daily beer intake. 5. Family history of premature coronary artery disease. RECOMMENDATION: From the cardiac standpoint, no further workup is needed at this time. I would expect he should be able to be discharged home when it is appropriate by Dr. Burr. Will see him in the office as a followup and depending on his progress, further recommendation will be made. Please feel free to call us for any question. MMODL / IJN: [id number] /
--- NOTE | 2020-01-04 14:52 | P.PN ---
Subjective Progress Note Date: 01/04/20 Principal diagnosis: Left lung pneumonia, community-acquired This is a 54-year-old male patient, with no significant medical history, however patient has not seen a physician in over 30 years. 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 last week on on 12/30/2019, patient started experiencing fever, sweats, body aches, fatigue. He thought he was coming down with symptoms of coronary virus and went to the urgent care clinic to get tested for Covid, he went through the drive through, and was not seen by provider. On Friday he started experiencing cough, tightness in chest. his cough was dry, nonproductive. On 01/03/2020 he presented to the emergency department with complaints of left-sided chest pain, and fever. Denies any known contacts with COVID 19. his chest x-ray showed left side 11 cm area of consolidation over the left mid lung field. The right lung is clear, blood work showed leukocytosis with white blood cell count of 14.8, hemoglobin of 14.2, d- dimer was mildly elevated to 0.72, sodium is 128, troponin was negative, proBNP was within normal limits. Temperature was 103.1F on presentation, patient was started on azithromycin and Rocephin. Apparently patient went into atrial fibrillation with rapid ventricular response, cardiology evaluated the patient, patient was started on heparin drip, and Cardizem drip for rate control. currently patient is back in sinus mechanism, with a controlled rate, hemodynamically he is stable, afebrile, and continues is on empiric antibiotics. On 01/04/2020 patient seen in follow-up on selective care unit, he is resting comfortably in bed, his left-sided chest pain has significantly improved, no worsening dyspnea, no hemoptysis, no fever or chills, today's chest x-ray has been reviewed showing improvement in appearance the left lung consolidation. Room air pulse ox is 9699%, hemodynamically stable, no altered mentation. His and accommodation of azithromycin and Rocephin, his white blood cell count is tr ending down, down to 11.4 on today's labs, electrolytes and renal profile are all within normal limits, serum sodium has improved and is up to 137 on today's labs. His urine Legionella antigen was negative, his Coronavirus PCR was negative Objective - Vital Signs Vital signs: Vital Signs Temp 97.9 F 01/04/20 08:00 Pulse 54 L 01/04/20 08:00 Resp 20 01/04/20 08:00 BP 122/73 01/04/20 08:00 Pulse Ox 99 01/04/20 08:00 Intake & Output 01/03/20 01/04/20 01/04/20 18:59 06:59 18:59 Intake Total 66.622 350 360 Output Total 1700 Balance 66.622 350 -1340 Weight 73.3 kg Intake: Intake, IV Titration 66.622 100 Amount Heparin Sod,Pork in 0.45% 66.622 NaCl 25,000 unit In 0.45 % NaCl 1 250ml.bag @ 12 UNITS/KG/HR 9.253 mls/hr IV .Q24H NATHALIE Rx#: [id number] cefTRIAXone 1 gm In 100 Sodium Chloride 0.9% 50 ml @ 100 mls/hr IVPB Q12HR NATHALIE Rx#:[id number] Oral 250 360 Output: Other 1700 Other: Voiding Method Toilet # Voids 1 2 # Bowel Movements 1 - Exam GENERAL EXAM: Alert, very pleasant, 54-year-old white male, resting comfortably in bed, on room air, comfortable in no apparent distress. HEAD: Normocephalic/atraumatic. EYES: Normal reaction of pupils, equal size. Conjunctiva pink, sclera white. NOSE: Clear with pink turbinates. THROAT: No erythema or exudates. NECK: No masses, no JVD, no thyroid enlargement, no adenopathy. CHEST: No chest wall deformity. Symmetrical expansion. LUNGS: Equal air entry with no crackles, wheeze, rhonchi or dullness. CVS: Regular rate and rhythm, normal S1 and S2, no gallops, no murmurs, no rubs ABDOMEN: Soft, nontender. No hepatosplenomegaly, normal bowel sounds, no guarding or rigidity. EXTREMITIES: No clubbing, no edema, no cyanosis, 2+ pulses and upper and lower extremities. MUSCULOSKELETAL: Muscle strength and tone normal. SPINE: No scoliosis or deformity SKIN: No rashes CENTRAL NERVOUS SYSTEM: Alert and oriented -3. No focal deficits, tone is normal in all 4 extremities. PSYCHIATRIC: Alert and oriented -3. Appropriate affect. Intact judgment and insight. - Labs CBC & Chem 7: 01/04/20 07:23 08 07:23 Labs: Abnormal Lab Results - Last 24 Hours (Table) 01/03/20 01/04/20 01/04/20 Range/Units 17:06 07:23 07:23 WBC 11.4 H (3.8-10.6) k/uL Neutrophils # 9.9 H (1.3-7.7) k/uL Lymphocytes # 0.8 L (1.0-4.8) k/uL Glucose 153 H (74-99) mg/dL POC Glucose (mg/dL) 163 H (75-99) mg/dL Microbiology - Last 24 Hours (Table) 01/03/20 02:31 Blood Culture - Preliminary Blood No Growth after 24 hours Assessment and Plan Plan: Assessment: #1. Chest pain, likely pleuritic in nature, related to acute left lung pneumonia, likely community acquired, suspect streptococcal pneumonia, COVID 19 PCR negative, Legionella urine antigen negative #2. New onset atrial fibrillation with RVR, currently back in sinus rhythm #3. Fever, cough, body aches and fatigue, patient had outpatient testing for COVID 19, on 12/30/2019, with unknown results, repeat inpatient COVID 19 testing results are pending. suspicion for COVID 19 is low, although still needs to be ruled out #4. Mild elevation of the d-dimer, nonspecific, CTA chest negative for PE #5. Hyponatremia, possibly hypovolemic, admission sodium is 128, could have a chronic component related to regular consumption of alcohol. Neurologically intact #6. Nicotine dependence, patient uses smokeless tobacco #7.Family history of CAD Plan: Continue current antibiotic coverage, chest x-ray findings show improvement in the appearance of left lung consolidation, no fever or chills, no acute issues overnight, his left-sided chest pain has improved, we'll give the patient on additional dose of IV Solu-Medrol, continue with when necessary NSAIDs, respectively is tolerated, CHEST x-ray in the morning, if continues to improve and remains stable we'll consider discharge home in the next 24 hours I performed a history & physical examination of the patient and discussed their management with my nurse practitioner, Jessica Wooten. I reviewed the nurse practitioner's note and agree with the documented findings and plan of care. Lung sounds are positive for diminished breath sounds. The findings and the impression was discussed with the patient. I attest to the documentation by the nurse practitioner. Time with Patient: Less than 30
[2020-01-05 07:04] LABS: HCT 41.4 % (39.0-53.0); HGB 13.3 gm/dL (13.0-17.5); MCH 30.2 pg (25.0-35.0); MCHC 32.1 g/dL (31.0-37.0); MCV 94.1 fL (80.0-100.0); Mean Platelet Volume 8.2; Platelet Count 282 k/uL (150-450); RDW 11.7 % (11.5-15.5); WBC 11.3 k/uL (3.8-10.6)
[2020-01-05 07:22] LABS: African American GFR (CKD) >90 (>60 ml/min/1.73 sqM); Anion Gap 8 mmol/L; Blood Urea Nitrogen 16 mg/dL (9-20); Calcium 8.9 mg/dL (8.4-10.2); Carbon Dioxide 29 mmol/L (22-30); Chloride 101 mmol/L (98-107); Glucose 124 mg/dL (74-99); Non-African American GFR(CKD) >90 (>60 ml/min/1.73 sqM); Potassium 4.6 mmol/L (3.5-5.1); Sodium 138 mmol/L (137-145)
--- NOTE | 2020-01-05 07:23 | XR ---
EXAMINATION TYPE: XR chest 2V DATE OF EXAM: 01/05/2020 COMPARISON: 01/04/2020 HISTORY: 54-year-old male follow-up left lung pneumonia TECHNIQUE: PA and lateral views FINDINGS: The cardiomediastinal silhouette, aorta, and pulmonary vasculature are within normal limits. Continue d large area of airspace disease in the left mid and lower lung. Trace left effusion also redemonstra jero. Right lung and pleural space remain clear. IMPRESSION: Similar appearance to the left mid to lower lung pneumonia and trace left effusion. Follow-up after treatment to ensure clearance.
[2020-01-05 08:59] VITALS: BP 146/81; PULSE 60; RESP 16; TEMP 97.8
[2020-01-05] MEDS: ENOXAPARIN 40 MG/0.4 ML SYRINGE SQ SCH (09:01)
[2020-01-05] MEDS: SODIUM CHLORIDE 0.9% 1,000 ML IV SCH (09:04)
[2020-01-05] MEDS: AZITHROMYCIN 500 MG in SODIUM CHLORIDE 0.9% 250 ML IVPB SCH (09:05)
--- NOTE | 2020-01-05 13:14 | P.PN ---
Subjective Progress Note Date: 01/05/20 Principal diagnosis: Left lung pneumonia, community-acquired This is a 54-year-old male patient, with no significant medical history, however patient has not seen a physician in over 30 years. 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 last week on on 12/30/2019, patient started experiencing fever, sweats, body aches, fatigue. He thought he was coming down with symptoms of coronary virus and went to the urgent care clinic to get tested for Covid, he went through the drive through, and was not seen by provider. On Friday he started experiencing cough, tightness in chest. his cough was dry, nonproductive. On 01/03/2020 he presented to the emergency department with complaints of left-sided chest pain, and fever. Denies any known contacts with COVID 19. his chest x-ray showed left side 11 cm area of consolidation over the left mid lung field. The right lung is clear, blood work showed leukocytosis with white blood cell count of 14.8, hemoglobin of 14.2, d- dimer was mildly elevated to 0.72, sodium is 128, troponin was negative, proBNP was within normal limits. Temperature was 103.1F on presentation, patient was started on azithromycin and Rocephin. Apparently patient went into atrial fibrillation with rapid ventricular response, cardiology evaluated the patient, patient was started on heparin drip, and Cardizem drip for rate control. currently patient is back in sinus mechanism, with a controlled rate, hemodynamically he is stable, afebrile, and continues is on empiric antibiotics. On 01/04/2020 patient seen in follow-up on selective care unit, he is resting comfortably in bed, his left-sided chest pain has significantly improved, no worsening dyspnea, no hemoptysis, no fever or chills, today's chest x-ray has been reviewed showing improvement in appearance the left lung consolidation. Room air pulse ox is 9699%, hemodynamically stable, no altered mentation. His and accommodation of azithromycin and Rocephin, his white blood cell count is tr ending down, down to 11.4 on today's labs, electrolytes and renal profile are all within normal limits, serum sodium has improved and is up to 137 on today's labs. His urine Legionella antigen was negative, his Coronavirus PCR was negative On 01/05/2020 patient seen in follow-up on selective care unit, no acute events overnight, patient has been extensively ambulating in the hallway,no cough, no congestion, no acute events overnight, doing very well, today's chest x-ray has been reviewed showing left mid to lower lung pneumonia and trace left pleural effusion, improved appearance of the left lung consolidation. Clinically patient is improving as well. Today's labs have been noted, white blood cell count is 11.3, stable, hemoglobin is 13.3, electrolytes renal profile are all within normal limits. Objective - Vital Signs Vital signs: Vital Signs Temp 97.8 F 01/05/20 08:00 Pulse 60 01/05/20 08:00 Resp 16 01/05/20 08:00 BP 146/81 01/05/20 08:00 Pulse Ox 100 01/05/20 08:00 Intake & Output 01/04/20 01/05/20 01/05/20 18:59 06:59 18:59 Intake Total 600 250 240 Output Total 1700 Balance -1100 250 240 Weight 73.3 kg Intake: Oral 600 250 240 Output: Other 1700 Other: Voiding Method Toilet Toilet # Voids 1 2 0 - Exam GENERAL EXAM: Alert, very pleasant, 54-year-old white male, resting comfortably in bed, on room air, comfortable in no apparent distress. HEAD: Normocephalic/atraumatic. EYES: Normal reaction of pupils, equal size. Conjunctiva pink, sclera white. NOSE: Clear with pink turbinates. THROAT: No erythema or exudates. NECK: No masses, no JVD, no thyroid enlargement, no adenopathy. CHEST: No chest wall deformity. Symmetrical expansion. LUNGS: Equal air entry with no crackles, wheeze, rhonchi or dullness. CVS: Regular rate and rhythm, normal S1 and S2, no gallops, no murmurs, no rubs ABDOMEN: Soft, nontender. No hepatosplenomegaly, normal bowel sounds, no guarding or rigidity. EXTREMITIES: No clubbing, no edema, no cyanosis, 2+ pulses and upper and lower extremities. MUSCULOSKELETAL: Muscle strength and tone normal. SPINE: No scoliosis or deformity SKIN: No rashes CENTRAL NERVOUS SYSTEM: Alert and oriented -3. No focal deficits, tone is normal in all 4 extremities. PSYCHIATRIC: Alert and oriented -3. Appropriate affect. Intact judgment and insight. - Labs CBC & Chem 7: 01/05/20 05:55 01/05/20 05:55 Labs: Abnormal Lab Results - Last 24 Hours (Table) 01/05/20 01/05/20 Range/Units 05:55 05:55 WBC 11.3 H (3.8-10.6) k/uL Glucose 124 H (74-99) mg/dL Microbiology - Last 24 Hours (Table) 01/03/20 02:31 Blood Culture - Preliminary Blood No Growth after 48 hours Assessment and Plan Plan: Assessment: #1. Chest pain, likely pleuritic in nature, related to acute left lung pneumonia, likely community acquired, suspect streptococcal pneumonia, COVID 19 PCR negative, Legionella urine antigen negative #2. New onset atrial fibrillation with RVR, currently back in sinus rhythm #3. Fever, cough, body aches and fatigue, patient had outpatient testing for COVID 19, on 12/30/2019, with unknown results, repeat inpatient COVID 19 testing results are pending. suspicion for COVID 19 is low, although still needs to be ruled out #4. Mild elevation of the d-dimer, nonspecific, CTA chest negative for PE #5. Hyponatremia, possibly hypovolemic, admission sodium is 128, could have a chronic component related to regular consumption of alcohol. Neurologically intact #6. Nicotine dependence, patient uses smokeless tobacco #7.Family history of CAD Plan: Today's chest x-ray shows improvement in the appearance of left lung consolidation, clinically patient continues to improve, he is on room air, breathing comfortably, no chest pain, no hemoptysis, no acute events overnight, patient is on room air, tolerating ambulation, stable for discharge home today on 10 day course of Levaquin 750 mg daily, he will need outpatient follow-up with Dr. Wasserman in the office in 7-10 days I performed a history & physical examination of the patient and discussed their management with my nurse practitioner, Jessica Wooten. I reviewed the nurse practitioner's note and agree with the documented findings and plan of care. Lung sounds are positive for diminished breath sounds. The findings and the impression was discussed with the patient. I attest to the documentation by the nurse practitioner. Time with Patient: Less than 30
--- NOTE | 2020-01-11 01:51 | CDI ---
Documentation Clarification Form Date: 01/11/2020 From: Robert Andrade Phone: If you have a question about this query, please contact Iliana Forbes Nursing Unit Manager at [phone] between 8am and 5pm. Admit Date:01/03/2020 Discharge Date: 01/05/2020 Patient Name:Hunter Cardenas Visit Number: [id number] ATTENTION: The Clinical Documentation Specialists (CDI) and [facility] Coding Staff appreciate your assistance in clarifying documentation. Please respond to the clarification below the line at the bottom and electronically sign. The CDI & [facility] Coding staff will review the response and follow-up if needed. Please note: Queries are made part of the Legal Health Record. If you have any questions, please contact the author of this message via ITS. Dear En Jara., The patient presented with Chest Pain, Covid Symptoms History/Risk Factors: A fib, Hyponaremia, Pneumonia. Clinical Indicators: Chest pain, Covid symptoms, WBC : 14.8 Lactic acid: 1.5 Blood cultures: NA Vitals signs on admission: 01/03/20 01/03/20 01/03/20 01:27 02:10 02:47 Temperature 103.1 F H Pulse Rate 74 156 H 149 H Respiratory 17 18 Rate Blood Pressure 116/72 122/89 O2 Sat by Pulse 97 96 Treatment: Levaquin 750 mg Antibiotics: Levaquin. 01/02 Consult note mentioned " sepsis secondary to pneumonia, coronavirus PCR pending". 01/[address] Courtney castro mentioned as "Sepsis secondary to pneumonia" Fever, cough, body aches and fatigue, patient had outpatient testing forCOVID 19, on 12/30/2019, with unknown results, repeat inpatient COVID 19 testingresults are pending. suspicion for COVID 19 is low, although still needs to beruled out Covid results showed as negative. In your professional opinion, please clarify if these findings signify one of the following conditions, Condition Sepsis secondary to Streptococcal pneumonia Sepsis secondary to Covid 19 Pneumonia Other, please specify Unable to determine NOT MY DOCUMENTATION MTDD
--- NOTE | 2020-01-11 23:29 | CDI ---
Documentation Clarification Form Date: 01/12/2020 From: Robert Andrade Phone: If you have a question about this query, please contact Iliana Forbes, Bread Stacker at [phone] between 8am and 5pm. Admit Date:01/03/2020 Discharge Date: 01/05/2020 Patient Name:Hunter Cardenas Visit Number: [id number] ATTENTION: The Clinical Documentation Specialists (CDI) and [facility] Coding Staff appreciate your assistance in clarifying documentation. Please respond to the clarification below the line at the bottom and electronically sign. The CDI & [facility] Coding staff will review the response and follow-up if needed. Please note: Queries are made part of the Legal Health Record. If you have any questions, please contact the author of this message via ITS. Dear Dr. Courtney Boland., The patient presented with Chest Pain, Covid Symptoms History/Risk Factors: A fib, Hyponaremia, Pneumonia. Clinical Indicators: Chest pain, Covid symptoms, WBC : 14.8 Lactic acid: 1.5 Blood cultures: NA Vitals signs on admission: 01/03/20 01/03/20 01/03/20 01:27 02:10 02:47 Temperature 103.1 F H Pulse Rate 74 156 H 149 H Respiratory 17 18 Rate Blood Pressure 116/72 122/89 O2 Sat by Pulse 97 96 Treatment: Levaquin 750 mg Antibiotics: Levaquin. 01/02 Consult note mentioned " sepsis secondary to pneumonia, coronavirus PCR pending". 01/02 HP note by you mentioned as "Sepsis secondary to pneumonia" Fever, cough, body aches and fatigue, patient had outpatient testing forCOVID 19, on 12/30/2019, with unknown results, repeat inpatient COVID 19 testingresults are pending. suspicion for COVID 19 is low, although still needs to beruled out Covid results showed as negative. In your professional opinion, please clarify if these findings signify one of the following conditions, Condition Sepsis secondary to Streptococcal pneumonia Sepsis secondary to Covid 19 Pneumonia Other, please specify Unable to determine Sepsis secondary to pneumonia. possible CAP MTDD
== END 2020-01-05 12:28 | disposition home or self-care (01) | DRG 871 ==
LOC: EC 01:04 → 3SCARD 04:27
PROVIDERS: ADMIT Hospitalist; ATTEND Hospitalist
DX: A41.9 Sepsis, unspecified organism (principal); J15.4 Pneumonia due to other streptococci; E87.1 Hypo-osmolality and hyponatremia; Z20.828 Contact with and (suspected) exposure to other viral communicable diseases; F17.200 Nicotine dependence, unspecified, uncomplicated; I48.0 Paroxysmal atrial fibrillation; E86.1 Hypovolemia; Z98.890 Other specified postprocedural states; Z82.49 Family history of ischemic heart disease and other diseases of the circulatory system; Z79.899 Other long term (current) drug therapy
CPT/HCPCS: 36415; 71045; 71046; 71275; 80048; 80053; 82728; 83605; 83615; 83735; 83880; 84443; 84484; 85025; 85027; 85379; 85610; 85730; 87040; 87449; 93005; 93306; 96365; 96366; 96368; 96375; 96376; 99291

== ENCOUNTER → 2024-09-21 | Outpatient (CLI) | payer SELFPAY ==
--- NOTE | 2024-09-21 07:18 | CT ---
EXAMINATION TYPE: CT heart w calcium score DATE OF EXAM: 09/21/2024 COMPARISON: CLINICAL INDICATION: Male, 59 years old with history of Z82.49 FAMILY HX OF ISCHEM HEART DIS AND OTH DIS O; PHH, family history of cardiac disease TECHNIQUE: Prospective Gating was used. Slice thickness: 3mm. Density threshold (HU): 130, Pixel threshold: 3, Algorithm: discrete. CT DLP: 76.[address] CTDI: mGy Automated exposure control for dose reduction was used. FINDINGS: CT CALCIUM SCORING Coronary calcium is a marker for plaque (fatty deposits) in a blood vessel or atherosclerosis (harden ing of the arteries). The presence and amount of calcium detected in a coronary artery by the CT sca n, indicates the presence and amount of atherosclerotic plaque. These calcium deposits appear years before the development of heart disease symptoms such as chest pain and shortness of breath. A calcium score is computed for each of the coronary arteries based upon the volume and density of th e calcium deposits. This can be referred to as your calcified plaque burden. It does not correspond directly to the percentage of narrowing in the artery but does correlate with the severity of the un derlying coronary atherosclerosis. RESULTS Region: LM Calcium Score ([place]): 87.24 Volume (mm3): 72.33 Mass (g): 24.11 Region: RCA Calcium Score ([place]): 0 Volume (mm3): 0 Mass (g): 0 Region: LAD Calcium Score ([place]): 377.1 Volume (mm3): 300.35 Mass (g): 100.12 Region: CX Calcium Score ([place]): 95.52 Volume (mm3): 85.58 Mass (g): 28.53 Region: PDA Calcium Score ([place]): 0 Volume (mm3): 0 Mass (g): 0 Total: Calcium Score ([place]): 559.86 Volume (mm3): 458.26 Mass (g): 152.75 TOTAL CALCIUM SCORE: 559.86 IMPRESSION: Calcium Score: 559.86 Implication: Extensive atherosclerotic plaque Risk of Coronary Artery Disease: High likelihood of at least one significant coronary narrowing CALCIUM SCORE IMPLICATION RISK OF C ORONARY ARTERY DISEASE 0 No identifiable plaque Very low, generally less than 5% 1-10 Minimal identifiable plaque Very unlikely, less than 10% 11-100 Definite, at least mild atherosclerotic plaque Mild or m inimal coronary narrowings likely 101-400 Definite, at least moderate atherosclerotic plaque Mild coronary ar chase disease highly likely, significant narrowing possible 401 or Higher Extensive atherosclerotic plaque High lik elihood of at least one significant coronary narrowing [facility], , 09/21/2024 7:16 AM
== END | disposition home or self-care (01) ==
LOC: RADCTMAIN 06:35
PROVIDERS: ATTEND Family Medicine
DX: I25.10 Atherosclerotic heart disease of native coronary artery without angina pectoris (principal); Z82.49 Family history of ischemic heart disease and other diseases of the circulatory system
CPT/HCPCS: 75571